=== PATIENT | male | born 1960 | race Caucasian/White ===

== ENCOUNTER 2017-11-29 07:58 | Day surgery (SDC) | payer BC ==
[~2017-11-29 07:58] MED LIST: Lactated Ringers 1,000 ML IV SCH; Lidocaine 2% 5 ML SDV ONE; Midazolam 1 MG/ML 2 ML SDV ONE; Propofol 200 MG/20 ML SDV ONE; fentaNYL 100 MCG/2 ML SDV ONE
--- NOTE | 2017-11-29 09:31 | PCM.PREANE ---
Preanesthetic Assessment - Procedure Proposed Procedure: EGD and Colonoscopy - Anesthesia/Transfusion/Family Hx Anesthesia History: Prior Anesthesia Without Reaction Family History of Anesthesia Reaction: No Transfusion History: No Prior Transfusion(s) - Review of Systems General: No Symptoms Pulmonary: No Symptoms Cardiovascular: Other (HTN) Gastrointestinal: Other (GERD) Neurological: No Symptoms Other: Reports: Diabetes (on ) - Physical Assessment NPO Status Date: 11/28/17 NPO Status Time: 22:00 O2 Sat by Pulse Oximetry: 99 Respiratory Rate: 16 Vital Signs: Last Vital Signs Temp 97.5 F 11/29/17 08:29 Pulse 71 11/29/17 08:29 Resp 16 11/29/17 08:29 BP 147/79 H 11/29/17 08:29 Pulse Ox 99 11/29/17 08:29 Height: 6 ft Weight: 251 lb ASA Class: 3 Mental Status: Alert & Oriented x3 Airway Class: Mallampati = 2 Dentition: Reports: Normal Dentition, Dentures (upper) Thyro-Mental Finger Breadths: 3 Mouth Opening Finger Breadths: 3 ROM/Head Extension: Limited/Partial (short, full neck) Lungs: Clear to Auscultation, Normal Respiratory Effort Cardiovascular: Regular Rate, Regular Rhythm, No Murmurs - Allergies Allergies/Adverse Reactions: Allergies Allergy/AdvReac Type Severity Reaction Status Date / Time No Known Allergies Allergy Verified 11/25/17 10:06 - Blood Blood Available: No Product(s) Available: None - Anesthesia Plan Pre-Op Medication Ordered: None - Acknowledgements Anesthesia Type Planned: MAC Pt an Appropriate Candidate for the Planned Anesthesia: Yes Alternatives and Risks of Anesthesia Discussed w Pt/Guardian: Yes Pt/Guardian Understands and Agrees with Anesthesia Plan: Yes PreAnesthesia Questionnaire HEENT History: Reports: Cataract, Hard of Hearing, Other (See Below) Other HEENT History: has upper denture, hx of fx eye socket Cardiovascular History: Reports: High Cholesterol, Hypertension Gastrointestinal History: Reports: Colon Polyp Musculoskeletal History: Reports: Fracture, Osteoarthritis Other Musculoskeletal History: hx of fx eye socket Endocrine/Metabolic History: Reports: Diabetes, Type II, Obesity/BMI 30+ - Past Surgical History HEENT Surgical History: Reports: Cataract Surgery GI Surgical History: Reports: Colonoscopy - SUBSTANCE USE Smoking Status *Q: Never Smoker Recreational Drug Use History: No - HOME MEDS Home Medications: Home Meds Doxazosin Mesylate 2 mg PO DAILY 11/25/17 [History] Glimepiride [Amaryl] 2 mg PO BID 11/25/17 [History] Lisinopril 20 mg PO BID 11/25/17 [History] Viagra 100 mg PO ASDIRECTED PRN 11/25/17 [History] amLODIPine Besylate [Amlodipine Besylate] 10 mg PO DAILY 11/25/17 [History] atorvaSTATin Calcium [Atorvastatin Calcium] 20 mg PO DAILY 11/25/17 [History] sitaGLIPtin Phos/Metformin HCl [Janumet Xr 50-1,000 mg Tablet] 1 tab PO BID [History] - CURRENT (IN HOUSE) MEDS Current Meds: Current Medications Lactated Ringer's (Ringers, Lactated) 1,000 mls @ 125 mls/hr IV ASDIRECTED JUANCARLOS Last Admin: 11/29/17 08:21 Dose: 125 mls/hr Discontinued Medications Fentanyl (Sublimaze) Confirm Administered Dose 100 mcg .ROUTE .STK-MED ONE Stop: 11/29/17 07:28 Lidocaine (Xylocaine-Mpf 2%) Confirm Administered Dose 5 ml .ROUTE .STK-MED ONE Stop: 11/29/17 07:28 Midazolam HCl (Versed 1 Mg/Ml) Confirm Administered Dose 2 mg .ROUTE .STK-MED ONE Stop: 11/29/17 07:28 Propofol (Diprivan 20 Ml) Confirm Administered Dose 400 mg .ROUTE .STK-MED ONE Stop: 11/29/17 07:28
[2017-11-29] MEDS ORDERED: Propofol 200 MG/20 ML SDV ONE ×3 (11:16→11:53)
[2017-11-29] MEDS ORDERED: ePHEDrine 50 MG/ML SDV ONE (11:21)
[2017-11-29] MEDS ORDERED: Sodium Chloride 0.9% 2.5 ML Syringe FLUSH PRN (11:59)
[2017-11-29] MEDS ORDERED: Ondansetron 4 MG/2 ML SDV IVPUSH PRN (11:59)
[2017-11-29] MEDS ORDERED: Sodium Chloride 0.9% 10 ML Syringe FLUSH PRN (11:59)
--- NOTE | 2017-11-29 12:09 | PCM.OPNOTE ---
- General Post-Op/Procedure Note Date of Surgery/Procedure: 11/29/17 Operative Procedure(s): Esophagogastroduodenoscopy with biopsy. Colonoscopy with cold rectal polypectomy. Pre Op Diagnosis: New-onset anemia. Personal history of colon polyps. Post-Op Diagnosis: Mild chronic gastritis. Small rectal polyp. Anesthesia Technique: MAC (ASA III) Primary Surgeon: Jesus Alberto Hanley Leather Cleaner: Nathan Adams Condition: Good Free Text/Narrative:: DICTATION [id number] CPT CODE [id number]
--- NOTE | 2017-11-29 12:43 | PCM.POSTAN ---
POST ANESTHESIA ASSESSMENT - MENTAL STATUS Mental Status: Alert, Oriented - RESPIRATORY Respiratory Status: Respiratory Rate WNL, Airway Patent, O2 Saturation Stable - CARDIOVASCULAR CV Status: Pulse Rate WNL, Blood Pressure Stable - GASTROINTESTINAL GI Status: No Symptoms - POST OP HYDRATION Hydration Status: Adequate & Stable
--- NOTE | 2017-11-29 12:44 | PCM48HPAN ---
Post Anesthesia Note - EVALUATION WITHIN 48HRS OF ANESTHETIC Vital Signs in Normal Range: Yes Patient Participated in Evaluation: Yes Respiratory Function Stable: Yes Airway Patent: Yes Cardiovascular Function Stable: Yes Hydration Status Stable: Yes Pain Control Satisfactory: Yes Nausea and Vomiting Control Satisfactory: Yes Mental Status Recovered: Yes Resp Rate: 17
--- NOTE | 2017-11-30 08:11 | OR ---
SURGEON: Jesus Alberto Hanley M.D. DATE OF PROCEDURE: 11/29/2017 OPERATION PERFORMED: Esophagogastroduodenoscopy with biopsy. ANESTHESIA: MAC. RAM PRESS OPERATOR: Dr. Murrieta. PREOPERATIVE DIAGNOSIS: New onset anemia. POSTOPERATIVE DIAGNOSIS: Mild gastritis. DESCRIPTION OF PROCEDURE: The patient was taken to the endoscopy room, positioned on the endoscopy table in the left lateral decubitus position. Time-out was called for appropriate identification of the patient and procedure. Monitored anesthesia care was provided. The bite block was placed between the patient's teeth. The gastroscope was inserted through the bite block into the oropharynx and advanced without difficulty through the esophagus and stomach into the duodenum where examination was now carried out in a retrograde fashion. The duodenum showed no acute ulcerations. There did appear to be a small polyp present. This was removed with the cold biopsy forceps. The gastroscope was then withdrawn into the stomach which does show [id number] gastritis. Antral biopsies were obtained to look for the presence of Helicobacter pylori. The gastroscope was retroflexed to visualize the proximal stomach. No lesions were identified proximally. The gastroscope was straightened and slowly withdrawn. The greater and lesser curvatures were very well visualized and no tumors, polyps, or ulcerations were noted. The GE junction was well defined and shows no acute inflammatory changes or ulcers. The esophagus demonstrated good contractility. No mid or proximal lesions were identified. The vocal cords were visualized as the scope was withdrawn and noted to move symmetrically. The gastroscope was then removed. The patient having tolerated this portion of the procedure well. Following colonoscopy and rectal polypectomy, he was taken to recovery room in stable condition. PRATIMA MACK /[id number]
--- NOTE | 2017-11-30 11:25 | OR ---
SURGEON: Jesus Alberto Hanley M.D. DATE OF PROCEDURE: 11/29/2017 OPERATION PERFORMED: Colonoscopy with cold rectal polypectomy. MOTORCYCLE ENGINE ASSEMBLER: Nathan Adams MD ANESTHESIA: MAC. ASA CLASSIFICATION: III. PREOPERATIVE DIAGNOSES: 1. New onset anemia. 2. Personal history of colon polyps. POSTOPERATIVE DIAGNOSIS: Small rectal polyp. DESCRIPTION OF PROCEDURE: With the patient having completed esophagogastroduodenoscopy, the colonoscope was inserted into the rectum and advanced with moderate difficulty to the cecum. The colonoscope was retroflexed to visualize the ascending colon from below, then straightened and slowly withdrawn. The cecum, ascending colon, hepatic flexure, transverse colon, splenic flexure, descending colon, and sigmoid colon showed no tumors, polyps, diverticula, or angiodysplastic changes. As the scope was withdrawn to the rectum, one small polyp was encountered and removed with the cold biopsy forceps. The colonoscope was retroflexed to visualize the anal orifice from above. No tumors or polyps were seen and there were no acute hemorrhoidal changes. The colonoscope was then straightened, the rectum aspirated, and the colonoscope removed. The patient tolerated the procedure well and was taken to recovery room in stable condition. PRATIMA / FREDERICK /[id number]
== END 2017-11-29 12:54 | disposition home or self-care (01) ==
LOC: MW.SDS 07:58
PROVIDERS: ATTEND Surgery
DX: D64.9 Anemia, unspecified (principal); K63.5 Polyp of colon; K31.7 Polyp of stomach and duodenum; K29.50 Unspecified chronic gastritis without bleeding; K29.80 Duodenitis without bleeding; Z86.010 Personal history of colon polyps; I10 Essential (primary) hypertension; E11.9 Type 2 diabetes mellitus without complications; E66.9 Obesity, unspecified; Z68.34 Body mass index [BMI] 34.0-34.9, adult; Z79.84 Long term (current) use of oral hypoglycemic drugs; Z79.899 Other long term (current) drug therapy
CPT/HCPCS: 00813; 82962; 88305; 88312; J2250; J2704; J3010; J7120

== ENCOUNTER 2025-01-15 10:42 | Day surgery (SDC) | payer BC ==
[2025-01-15] MEDS: Lactated Ringers 1,000 ML IV SCH (11:30)
[2025-01-15] MEDS ORDERED: propofoL 500 MG/50 ML 50 ML ONE ×2 (11:34→12:12)
[2025-01-15] MEDS ORDERED: Lactated Ringers 1,000 ML IV SCH (12:45)
== END 2025-01-15 13:20 | disposition home or self-care (01) ==
LOC: MW.SDS 10:42
PROVIDERS: ATTEND Surgery
DX: K62.5 Hemorrhage of anus and rectum (principal); I12.9 Hypertensive chronic kidney disease with stage 1 through stage 4 chronic kidney disease, or unspecified chronic kidney disease; E11.22 Type 2 diabetes mellitus with diabetic chronic kidney disease; N18.30 Chronic kidney disease, stage 3 unspecified; E66.9 Obesity, unspecified; Z68.34 Body mass index [BMI] 34.0-34.9, adult; Z79.899 Other long term (current) drug therapy; Z86.0101 Personal history of adenomatous and serrated colon polyps
CPT/HCPCS: 45378; J2003; J2704; J7120; 00811